=== PATIENT | female | born 1980 | race American Indian/Alaskan Native ===

== ENCOUNTER 2017-11-23 21:09 | Inpatient (IN) | payer MEDICAID ==
--- NOTE | 2017-11-23 23:24 | History and Physical Report ---
History of Present Illness Date of examination: 11/23/17 Date of admission: 11/23/17 21:09 Chief complaint: Induction of labor History of present illness: Pt is a 37yo BF EDC 12/05/17: EGA 38 3/7 weeks presents to L&D for induction of labor due to Chronic hypertension, polyhydramnios, morbid obesity and ventriculomegaly. She received care at [facility] since 9 weeks and co-managed by [facility]. records are available and GBS is Negative. Past History Past Medical History: hypertension Past Surgical History: no surgical history Social history: no significant social history, single - Obstetrical History Expected Date of Delivery: 12/05/17 Actual Gestation: 38 Week(s) 3 Day(s) Medications and Allergies Allergies Allergy/AdvReac Type Severity Reaction Status Date / Time No Known Allergies Allergy Unverified 11/23/17 23:25 Home Medications Medication Instructions Recorded Confirmed Last Taken Type Aspirin [Aspirin EC] 1 tab PO DAILY 11/23/17 11/23/17 11/23/17 17:00 History 1 TAB Colace CAP 1 tab PO ONCE 11/23/17 11/23/17 11/23/17 17:00 History 1 TABLET Ferrous Sulfate [Iron] 325 mg PO DAILY 11/23/17 11/23/17 11/23/17 17:00 History 1 TAB Labetalol [Normodyne] 200 mg PO BID 11/23/17 11/23/17 11/23/17 17:00 History 200 MG Loratadine 1 tab PO DAILY 11/23/17 11/23/17 11/23/17 17:00 History 1 TAB Pnv,Calcium 72/Iron/Folic Acid 1 tab PO ONCE 11/23/17 11/23/17 11/23/17 17:00 History [Preplus Ca-Fe 27 mg-FA 1 mg Tb] 1 TAB Ranitidine HCl 150 mg PO BID 11/23/17 11/23/17 11/23/17 17:00 History 1 Review of Systems All systems: negative - Vital Signs Vital signs: Vital Signs Pulse Pulse Ox 109 H 100 11/23/17 21:52 11/23/17 21:52 Temp Pulse Resp BP Pulse Ox 107 H 132/70 82 L 11/23/17 22:18 11/23/17 21:58 11/23/17 22:18 - Physical Exam Breasts: Positive: deferred Cardiovascular: Regular rate Lungs: Positive: Clear to auscultation Abdomen: Positive: normal appearance, soft Genitourinary (Female): Positive: normal external genitalia Uterus: Positive: enlarged Extremities: Positive: normal - Obstetrical FHR: category 1 Uterine Contraction Monitor Mode: External Cervical Dilatation: 1 Cervical Effacement Percentage: 50 station: -3 Uterine Contraction Pattern: Irregular Uterine Contraction Intensity: Mild Results Result Diagrams: 11/24/17 01:05 All other labs normal. Assessment and Plan - Patient Problems (1) 38 weeks gestation of Onset Date: 11/23/17 Current Visit: Yes Status: Acute Plan to address problem: A: IUP @ 38 3/7 weeks Chronic hypertension Polyhydramnios Morbid obesity P: Admit to L&D for cervidil/pitocin induction of labor Monitor BP's (2) Hypertension affecting in third trimester Onset Date: 11/23/17 Current Visit: Yes Status: Acute (3) Polyhydramnios affecting in third trimester Onset Date: 11/23/17 Current Visit: Yes Status: Acute (4) Morbid obesity with BMI of 50.0-59.9, adult Onset Date: 11/23/17 Current Visit: Yes Status: Chronic
[2017-11-23] MEDS ORDERED: ZOFRAN IV PRN (23:28)
[2017-11-23] MEDS ORDERED: NARCAN 0.4 MG/1 ML IV PRN (23:28)
[2017-11-23] MEDS ORDERED: XYLOCAINE 2% INFILTRATI ONE (23:28)
[2017-11-23] MEDS ORDERED: MINERAL OIL PO PRN (23:28)
[2017-11-23] MEDS ORDERED: BRETHINE SUB-Q PRN (23:28)
[2017-11-23] MEDS ORDERED: STADOL IV PRN (23:28)
[2017-11-23] MEDS ORDERED: BRETHINE IVP PRN (23:28)
[2017-11-23] MEDS ORDERED: ePHEDrine SULFATE IV PRN (23:28)
[2017-11-23] MEDS ORDERED: SUBLIMAZE IV PRN (23:28)
[2017-11-23] MEDS ORDERED: PITOCin/NS 30 UNIT/500ML 30 UNITS/500 ML BAG IV SCH (23:45)
[2017-11-23] MEDS ORDERED: PITOCin/NS 20 UNIT/1000ML DRIP 20 UNITS/1,000 ML BAG IV SCH (23:45)
[2017-11-24] MEDS ORDERED: CERVIDIL VG ONE (00:30)
[2017-11-24 01:34] LABS: Hematocrit 34.2 % (30.3-42.9); Hemoglobin 11.8 gm/dl (10.1-14.3); Mean Corpuscular HGB Conc 35 % (30-34); Mean Corpuscular Hemoglobin 31 pg (28-32); Mean Corpuscular Volume 89 fl (79-97); Platelet Count 229 K/mm3 (140-440); Red Blood Count 3.85 M/mm3 (3.65-5.03); Red Cell Distribution Width 13.4 % (13.2-15.2)
[2017-11-24] MEDS: LACTATED RINGERS 1,000 ML IV SCH ×3 (02:14→17:04)
[2017-11-24] MEDS: PITOCin/NS 30 UNIT/500ML 30 UNITS/500 ML BAG IV SCH ×6 (09:47→15:55)
--- NOTE | 2017-11-24 14:21 | Progress Note ---
Assessment and Plan - Patient Problems (1) 38 weeks gestation of Onset Date: 11/23/17 Current Visit: Yes Status: Acute Plan to address problem: A: IUP @ 38 4/7 weeks Chronic hypertension - currently controlled without Labetolol Polyhydramnios Morbid obesity P: Continue with pitocin induction of labor Monitor BP's (2) Hypertension affecting in third trimester Onset Date: 11/23/17 Current Visit: Yes Status: Acute (3) Polyhydramnios affecting in third trimester Onset Date: 11/23/17 Current Visit: Yes Status: Acute (4) Morbid obesity with BMI of 50.0-59.9, adult Onset Date: 11/23/17 Current Visit: Yes Status: Chronic Subjective - Subjective Date of service: 11/24/17 Principal diagnosis: IUP @ 38 4/7 weeks; CHTN; Polyhydramnios Interval history: Pt received cervidil last night, but it was removed due to a non-reassuring tracing which subsequently improved. She is currently on pitocin 14mu/min and adriane q 3-4 mins. Patient reports: movement normal, contractions, no new complaints, no loss of fluid, no vaginal bleeding Objective - Vital Signs Vital Signs: Vital Signs - 12hr 11/24/17 11/24/17 11/24/17 02:26 02:31 02:36 Temperature Pulse Rate 102 H 103 H 102 H Respiratory Rate Blood Pressure Blood Pressure [Left] O2 Sat by Pulse 98 98 98 Oximetry 11/24/17 11/24/17 11/24/17 02:41 02:42 02:46 Temperature Pulse Rate 100 H 100 H 101 H Respiratory Rate Blood Pressure 134/70 Blood Pressure [Left] O2 Sat by Pulse 97 99 Oximetry 11/24/17 11/24/17 11/24/17 02:51 02:56 03:01 Temperature Pulse Rate 118 H 103 H 105 H Respiratory Rate Blood Pressure Blood Pressure [Left] O2 Sat by Pulse 98 98 99 Oximetry 11/24/17 11/24/17 11/24/17 03:06 03:11 03:13 Temperature Pulse Rate 104 H 104 H 100 H Respiratory Rate Blood Pressure 126/63 Blood Pressure [Left] O2 Sat by Pulse 99 97 Oximetry 11/24/17 11/24/17 11/24/17 03:16 03:43 04:03 Temperature Pulse Rate 108 H 106 H 110 H Respiratory Rate Blood Pressure 117/62 Blood Pressure [Left] O2 Sat by Pulse 100 100 Oximetry 11/24/17 11/24/17 11/24/17 04:08 04:12 04:13 Temperature Pulse Rate 104 H 103 H 101 H Respiratory Rate Blood Pressure 123/72 Blood Pressure [Left] O2 Sat by Pulse 100 92 98 Oximetry 11/24/17 11/24/17 11/24/17 04:18 04:23 04:28 Temperature Pulse Rate 101 H 104 H 104 H Respiratory Rate Blood Pressure Blood Pressure [Left] O2 Sat by Pulse 99 99 98 Oximetry 11/24/17 11/24/17 11/24/17 04:33 04:38 04:42 Temperature Pulse Rate 111 H 103 H 100 H Respiratory Rate Blood Pressure 119/70 Blood Pressure [Left] O2 Sat by Pulse 98 99 93 Oximetry 11/24/17 11/24/17 11/24/17 04:43 04:48 04:53 Temperature Pulse Rate 100 H 103 H 98 H Respiratory Rate Blood Pressure Blood Pressure [Left] O2 Sat by Pulse 99 99 99 Oximetry 11/24/17 11/24/17 11/24/17 04:58 05:03 05:08 Temperature Pulse Rate 99 H 100 H 103 H Respiratory Rate Blood Pressure Blood Pressure [Left] O2 Sat by Pulse 98 99 98 Oximetry 11/24/17 11/24/17 11/24/17 05:13 05:18 05:23 Temperature Pulse Rate 104 H 101 H 98 H Respiratory Rate Blood Pressure 117/65 Blood Pressure [Left] O2 Sat by Pulse 99 99 98 Oximetry 11/24/17 11/24/17 11/24/17 05:28 05:32 05:33 Temperature 98.1 F Pulse Rate 105 H 96 H Respiratory 16 Rate Blood Pressure Blood Pressure [Left] O2 Sat by Pulse 100 99 Oximetry 11/24/17 11/24/17 11/24/17 05:39 05:42 05:44 Temperature Pulse Rate 97 H 97 H 93 H Respiratory Rate Blood Pressure 126/66 Blood Pressure [Left] O2 Sat by Pulse 100 100 Oximetry 11/24/17 11/24/17 11/24/17 05:49 05:54 05:59 Temperature Pulse Rate 91 H 92 H 90 Respiratory Rate Blood Pressure Blood Pressure [Left] O2 Sat by Pulse 100 100 100 Oximetry 05/05/0411/24/17 11/24/17 06:04 06:09 06:12 Temperature Pulse Rate 91 H 96 H 88 Respiratory Rate Blood Pressure 112/55 Blood Pressure [Left] O2 Sat by Pulse 100 100 Oximetry 11/24/17 11/24/17 11/24/17 06:14 06:19 09:48 Temperature 97.3 F L Pulse Rate 92 H 89 93 H Respiratory 18 Rate Blood Pressure Blood Pressure 126/70 [Left] O2 Sat by Pulse 100 100 99 Oximetry 11/24/17 11/24/17 09:52 09:54 Temperature Pulse Rate 93 H 96 H Respiratory Rate Blood Pressure 126/70 Blood Pressure [Left] O2 Sat by Pulse 99 Oximetry - Exam Lungs: Clear to auscultation Abdomen: Present: normal appearance Uterus: Present: normal FHR: auscultation normal, category 1 Uterine Contraction Monitor Mode: External Cervical Dilatation: 1 Cervical Effacement Percentage: 50 station: -3 Uterine Contraction Pattern: Regular Uterine Tone Measurement Phase: Contraction Uterine Contraction Intensity: Moderate - Labs Labs: Abnormal Labs 11/24/17 01:05 WBC 11.9 H MCHC 35 H Laboratory Results - last 24 hr 11/24/17 11/24/17 11/24/17 01:05 01:05 04:01 WBC 11.9 H RBC 3.85 Hgb 11.8 Hct 34.2 MCV 89 MCH 31 MCHC 35 H RDW 13.4 Plt Count 229 RPR Nonreactive Blood Type B POSITIVE Antibody Screen Negative
[2017-11-25] MEDS: LACTATED RINGERS 1,000 ML IV SCH (02:07)
--- NOTE | 2017-11-25 10:28 | Progress Note ---
Assessment and Plan - Patient Problems (1) 38 weeks gestation of Onset Date: 11/23/17 Current Visit: Yes Status: Acute Plan to address problem: A: IUP @ 38 5/7 weeks Chronic hypertension - currently controlled without Labetolol Polyhydramnios Morbid obesity Desires permanent sterilization P: Will proceed with a Primary C Section with Bilateral Tubal Ligation (2) Hypertension affecting in third trimester Onset Date: 11/23/17 Current Visit: Yes Status: Acute (3) Polyhydramnios affecting in third trimester Onset Date: 11/23/17 Current Visit: Yes Status: Acute (4) Morbid obesity with BMI of 50.0-59.9, adult Onset Date: 11/23/17 Current Visit: Yes Status: Chronic Subjective - Subjective Date of service: 11/25/17 Principal diagnosis: IUP @ 38 5/7 weeks; CHTN; Polyhydramnios Interval history: Pt received cervidil, but it was removed due to a non-reassuring tracing which subsequently improved. She is currently on pitocin 28mu/min and adriane q 3- 4 mins without any cervical change x 2 days. Discussed with pt and family members to proceed with a C Section with BTL. Patient reports: movement normal, contractions, no new complaints, no loss of fluid, no vaginal bleeding Objective - Vital Signs Vital Signs: Vital Signs - 12hr 11/24/17 11/24/17 11/24/17 22:31 22:36 22:41 Temperature Pulse Rate 89 92 H 84 Respiratory Rate Blood Pressure Blood Pressure [Left] O2 Sat by Pulse 98 98 96 Oximetry 11/24/17 11/24/17 11/24/17 22:42 22:43 23:30 Temperature 98.8 F Pulse Rate 97 H 90 Respiratory 20 Rate Blood Pressure 129/69 Blood Pressure [Left] O2 Sat by Pulse 94 Oximetry 11/24/17 11/25/17 11/25/17 23:55 00:02 00:31 Temperature Pulse Rate 85 97 H 100 H Respiratory Rate Blood Pressure 114/63 111/66 116/57 Blood Pressure [Left] O2 Sat by Pulse 100 Oximetry 11/25/17 11/25/17 11/25/17 00:55 01:55 02:56 Temperature Pulse Rate 92 H 91 H 83 Respiratory Rate Blood Pressure 108/66 109/67 121/71 Blood Pressure [Left] O2 Sat by Pulse Oximetry 11/25/17 11/25/17 11/25/17 03:28 03:46 03:51 Temperature Pulse Rate 96 H 91 H 90 Respiratory Rate Blood Pressure 128/76 Blood Pressure [Left] O2 Sat by Pulse 98 98 Oximetry 11/25/17 11/25/17 11/25/17 03:56 04:01 04:06 Temperature Pulse Rate 86 85 82 Respiratory Rate Blood Pressure 128/74 Blood Pressure [Left] O2 Sat by Pulse 99 99 99 Oximetry 11/25/17 11/25/17 11/25/17 04:11 04:16 06:56 Temperature Pulse Rate 83 85 90 Respiratory Rate Blood Pressure 119/68 Blood Pressure [Left] O2 Sat by Pulse 98 97 Oximetry 11/25/17 11/25/17 11/25/17 07:35 07:36 07:37 Temperature 98.6 F Pulse Rate 99 H 101 H 92 H Respiratory 17 Rate Blood Pressure 116/56 121/63 Blood Pressure 121/63 [Left] O2 Sat by Pulse 99 99 Oximetry 11/25/17 11/25/17 11/25/17 07:52 07:57 08:02 Temperature Pulse Rate 93 H 89 95 H Respiratory Rate Blood Pressure 131/73 Blood Pressure [Left] O2 Sat by Pulse 99 98 98 Oximetry 11/25/17 11/25/17 11/25/17 08:07 08:12 08:17 Temperature Pulse Rate 94 H 95 H 94 H Respiratory Rate Blood Pressure Blood Pressure [Left] O2 Sat by Pulse 98 99 100 Oximetry 11/25/17 11/25/17 11/25/17 08:22 08:27 08:32 Temperature Pulse Rate 95 H 102 H 98 H Respiratory Rate Blood Pressure Blood Pressure [Left] O2 Sat by Pulse 99 100 99 Oximetry 11/25/17 11/25/17 11/25/17 08:37 08:42 08:47 Temperature Pulse Rate 94 H 97 H 98 H Respiratory Rate Blood Pressure Blood Pressure [Left] O2 Sat by Pulse 99 99 100 Oximetry 11/25/17 11/25/17 11/25/17 08:52 09:27 09:32 Temperature Pulse Rate 112 H 99 H 93 H Respiratory Rate Blood Pressure Blood Pressure [Left] O2 Sat by Pulse 93 99 99 Oximetry 11/25/17 11/25/17 11/25/17 09:37 09:42 09:46 Temperature Pulse Rate 97 H 94 H 32 L Respiratory Rate Blood Pressure 141/72 Blood Pressure [Left] O2 Sat by Pulse 100 100 87 Oximetry 11/25/17 11/25/17 11/25/17 09:48 09:58 10:03 Temperature Pulse Rate 93 H 99 H Respiratory Rate Blood Pressure Blood Pressure 141/72 [Left] O2 Sat by Pulse 98 100 Oximetry 11/25/17 11/25/17 11/25/17 10:08 10:13 10:18 Temperature Pulse Rate 94 H 85 77 Respiratory Rate Blood Pressure Blood Pressure [Left] O2 Sat by Pulse 99 97 98 Oximetry 11/25/17 11/25/17 10:23 10:28 Temperature Pulse Rate 73 81 Respiratory Rate Blood Pressure Blood Pressure [Left] O2 Sat by Pulse 98 98 Oximetry - Exam Breasts: deferred Cardiovascular: Regular rate Lungs: Clear to auscultation Abdomen: Present: normal appearance Uterus: Present: normal FHR: category 1 Uterine Contraction Monitor Mode: External Cervical Dilatation: 1 Cervical Effacement Percentage: 50 station: -3 Uterine Contraction Pattern: Regular Uterine Tone Measurement Phase: Contraction Uterine Contraction Intensity: Strong/Firm - Labs Labs: Abnormal Labs 11/24/17 01:05 WBC 11.9 H MCHC 35 H Laboratory Results - last 24 hr 11/24/17 04:01 RPR Nonreactive
[2017-11-25] MEDS ORDERED: PEPCID IV ONE (14:34)
[2017-11-25] MEDS ORDERED: BICITRA PO ONE (14:34)
[2017-11-25] MEDS ORDERED: REGLAN IV ONE (14:34)
[2017-11-25] MEDS ORDERED: LACTATED RINGERS 1,000 ML IV SCH (15:00)
[2017-11-25] MEDS ORDERED: PITOCin/NS 20 UNIT/1000ML DRIP 20 UNITS/1,000 ML BAG IV SCH ×2 (15:00→19:00)
[2017-11-25] MEDS ORDERED: ANCEF/STERILE WATER 2 GM/20 ML 2 GM/20 ML SYRINGE IV NR (15:00)
[2017-11-25] MEDS ORDERED: SUBLIMAZE ONE (16:04)
[2017-11-25] MEDS ORDERED: XYLOCAINE MPF 2% ONE (16:17)
[2017-11-25] MEDS ORDERED: NEO SYNEPHRINE/NS Syringe(OR USE) IV ONE (16:33)
[2017-11-25] MEDS ORDERED: ZOFRAN ONE (16:33)
[2017-11-25] MEDS ORDERED: WATER FOR IRRIG STERILE IR ONE (16:50)
[2017-11-25] MEDS ORDERED: NACL 0.9% IR ONE (16:50)
[2017-11-25] MEDS ORDERED: NACL 0.9% 1000 ML 1,000 ML ONE (16:51)
[2017-11-25] MEDS ORDERED: NARCAN 0.4 MG/1 ML IV PRN (17:54)
[2017-11-25] MEDS ORDERED: TUCKS PAD TP PRN (17:54)
[2017-11-25] MEDS ORDERED: LANSINOH TP PRN (17:54)
[2017-11-25] MEDS ORDERED: SODIUM CHLORIDE FLUSH SYRINGE 10 ML IV SCH (18:00)
[2017-11-25] MEDS ORDERED: PHENERGAN PR PRN (18:10)
[2017-11-25] MEDS ORDERED: MILK OF MAGNESIA PO PRN (18:10)
[2017-11-25] MEDS ORDERED: TYLENOL PO PRN (18:10)
--- NOTE | 2017-11-25 18:22 | Operative Report ---
Operative Report Operative Report: Date of procedure: 11/25/2017 Pre-operative diagnosis: 1. Intrauterine at 36-5/7 weeks 2. Chronic hypertension 3. Polyhydramnios 4. Morbid obesity 5. Failed induction of labor 6. Desires permanent sterilization Post-operative diagnosis: Same Procedure name(s): 1. Primary low transverse section 2. Bilateral tubal ligation Surgeon: Jesús Cadet MD [place]: None Anesthesia: Spinal anesthesia by Dr. Renner EBL: 900 mls Findings: A 3524 g male infant Apgars 5 at 1 minute 7 and 5 minutes. Copious clear amniotic fluid. Normal uterus with small posterior fibroid. Normal tubes and ovaries bilaterally. Procedure: After the patient was prepped and draped in usual sterile fashion, and after satisfactory level of epidural anesthesia was obtained, the skin knife was used to make a transverse skin incision. The incision was excised down to layer of the fascia, which was nicked in the midline and extended laterally using the Bovie cautery. The rectus muscles were dissected off the rectus fascia both superiorly and inferiorly. The rectus bellies in the midline, and the peritoneum was entered under direct visualization. The peritoneal incision was extended superiorly and inferiorly. A bladder flap was created and the bladder blade was then placed. The uterus was scored in a curvilinear linear fashion, entered in the midline revealing clear amniotic fluid. The infant's head was delivered onto the surgical field, and the oropharynx and nasopharynx were bulb suctioned. The rest of the infant's body was delivered, cord was doubly clamped and cut and the infant was handed to the waiting respiratory team. Cord blood was then obtained. The placenta was manually removed from the uterus, and the uterus removed from its normal anatomical position. After gentle uterine lavage, the incision was inspected and found to be without extensions. It was then closed in 2 layers using 0 Vicryl suture in a running interlocking fashion, the second layer imbricating the first. Attention was then turned to the tubal ligation. First the right fallopian tube was grasped using [place], and the Filshie clip was applied to the proximal portion of the tube. Next the left fallopian tube was grasped using the [place], and the Filshie clip was applied to the proximal portion of the tube. After good hemostasis was achieved, copious amounts or irrigation was performed, and the gutters were suctioned free of blood and blood clots. Tisseel sealant was sprayed across the uterine incision. The uterus was then returned to its normal anatomical position, and after excellent hemostasis assured, the peritoneum was reapproximated using 3-0 Vicryl suture in a running interlocking fashion, and then the rectus muscles were re-approximated using 3-0 Vicryl suture in a figure -of-eight configuration. The fascia was then re-approximated using 0 Vicryl suture in running interlocking fashion. The subcutaneous layer was made hemostatic using Bovie cautery, the Tisseel sealant was sprayed across the fascial incision and the skin edges re-approximated using 4-0 Vicryl suture in a sub-cuticular fashion. Patient tolerated the procedure well was transported to recovery in stable condition.
[2017-11-25] MEDS ORDERED: DEMEROL IV PRN (18:44)
[2017-11-25] MEDS ORDERED: ANCEF/NS 1 GM/50 ML 1 GM/50 ML BAG IV SCH (19:00)
[2017-11-25] MEDS ORDERED: D5LR 1,000 ML IV SCH (19:00)
[2017-11-25] MEDS: TORADOL IV PRN (19:27)
[2017-11-25] MEDS: PITOCin/NS 30 UNIT/500ML 30 UNITS/500 ML BAG IV SCH (19:28)
[2017-11-25] MEDS: NORCO 5/325 PO PRN (22:25)
[2017-11-26] MEDS: ceFAZolin 1 GM in NACL 0.9% 20 ML IV SCH ×2 (02:30→10:16)
[2017-11-26] MEDS: TORADOL IV PRN (04:08)
[2017-11-26] MEDS ORDERED: BOOSTRIX IM ONE (06:00)
[2017-11-26 07:03] LABS: Hematocrit 35.7 % (30.3-42.9); Hemoglobin 11.6 gm/dl (10.1-14.3)
--- NOTE | 2017-11-26 09:38 | Progress Note ---
Assessment and Plan - Patient Problems (1) 38 weeks gestation of Onset Date: 11/23/17 Current Visit: Yes Status: Resolved (2) Hypertension affecting in third trimester Onset Date: 11/23/17 Current Visit: Yes Status: Chronic (3) Polyhydramnios affecting in third trimester Onset Date: 11/23/17 Current Visit: Yes Status: Resolved (4) Morbid obesity with BMI of 50.0-59.9, adult Onset Date: 11/23/17 Current Visit: Yes Status: Chronic (5) Status post section Onset Date: 11/26/17 Current Visit: Yes Status: Acute Plan to address problem: A: S/P C Section with BTL - POD #1 Doing well Chronic hypertension - stable P: Continue RPOC Advance diet as tolerated Anticipate discharge in 24-48hrs Subjective - Subjective Date of service: 11/26/17 Principal diagnosis: s/p Primary C Section with BTL - POD #1 Interval history: Pt is feeling well without complaints. Tolerating a liquid diet without nausea or vomiting. Patient reports: appetite normal, voiding normally, pain well controlled, flatus , ambulating normally, no dizzy ambulation, no nauseated : doing well, in NICU Objective - Vital Signs Latest vital signs: Vital Signs Temp Pulse Resp BP BP Pulse Ox 11/26/17 04:08 18 11/26/17 01:00 98.6 F 77 16 131/76 11/25/17 22:25 18 11/25/17 19:38 98.9 F 11/25/17 19:30 75 23 141/84 100 11/25/17 19:24 86 12 143/67 95 11/25/17 19:18 83 24 133/67 94 11/25/17 19:12 83 22 125/67 97 11/25/17 19:06 78 14 115/61 98 11/25/17 19:00 78 18 117/52 97 11/25/17 18:56 87 17 92/71 11/25/17 18:50 85 15 92/71 11/25/17 18:41 101 H 10 L 92/71 100 11/25/17 18:36 98 H 14 82/44 99 11/25/17 18:30 91 H 20 82/44 99 11/25/17 18:24 91 H 18 102/56 99 11/25/17 18:18 87 11 L 93/61 99 11/25/17 18:12 93 H 12 105/54 99 11/25/17 18:06 87 14 105/54 99 11/25/17 18:00 84 16 105/54 99 11/25/17 17:55 83 19 97/54 98 11/25/17 17:50 85 19 103/47 98 11/25/17 17:44 97.6 F 90 16 11/25/17 13:56 91 H 149/96 11/25/17 12:57 83 135/72 11/25/17 12:04 85 49 L 11/25/17 12:03 89 99 11/25/17 11:58 77 99 11/25/17 11:56 75 129/73 11/25/17 11:53 76 99 11/25/17 11:48 78 98 11/25/17 11:43 77 98 11/25/17 11:38 75 98 11/25/17 11:33 78 99 11/25/17 11:28 80 99 11/25/17 11:23 74 99 11/25/17 11:18 75 98 11/25/17 11:13 77 99 11/25/17 11:08 72 96 11/25/17 11:03 84 99 11/25/17 10:58 77 99 11/25/17 10:56 82 134/67 93 11/25/17 10:53 81 99 11/25/17 10:48 77 98 11/25/17 10:43 79 98 11/25/17 10:38 90 97 11/25/17 10:33 82 98 11/25/17 10:28 81 98 11/25/17 10:23 73 98 11/25/17 10:18 77 98 11/25/17 10:13 85 97 11/25/17 10:08 94 H 99 11/25/17 10:03 99 H 100 11/25/17 09:58 93 H 98 11/25/17 09:48 141/72 11/25/17 09:46 32 L 87 11/25/17 09:42 94 H 100 Intake and Output 11/25/17 11/26/17 11/26/17 22:59 06:59 14:59 Intake Total 1700 Output Total 350 800 Balance 1350 -800 Intake: IV 1700 Output: Urine 350 800 Uretheral (Krishnan) 200 800 Other: Estimated Blood Loss 900 - Exam Breasts: Present: deferred Cardiovascular: Present: Regular rate Lungs: Present: Clear to auscultation Abdomen: Present: normal appearance, soft Uterus: Present: normal, firm, fundal height below umbilicus Extremities: Present: normal Incision: Present: normal, dry, intact, dressed - Labs Labs: Laboratory Tests 11/24/17 11/24/17 11/24/17 01:05 01:05 04:01 WBC 11.9 H RBC 3.85 Hgb 11.8 Hct 34.2 MCV 89 MCH 31 MCHC 35 H RDW 13.4 Plt Count 229 RPR Nonreactive Blood Type B POSITIVE Antibody Screen Negative 11/26/17 06:03 WBC RBC Hgb 11.6 Hct 35.7 MCV MCH MCHC RDW Plt Count RPR Blood Type Antibody Screen
[2017-11-26] MEDS: PERCOCET 5/325 PO PRN ×2 (10:40→16:46)
[2017-11-26] MEDS: FEOSOL PO SCH (10:40)
[2017-11-26] MEDS: PRENATAL VITAMIN PO SCH (10:40)
[2017-11-26] MEDS: NORMODYNE PO SCH ×2 (16:02→22:11)
[2017-11-26] MEDS ORDERED: M-M-R II VACCINE SUB-Q ONE (18:14)
[2017-11-26] MEDS: MOTRIN PO PRN (22:11)
[2017-11-26] MEDS: NORCO 5/325 PO PRN (22:12)
[2017-11-27] MEDS: PERCOCET 5/325 PO PRN ×3 (00:32→21:59)
[2017-11-27] MEDS: MOTRIN PO PRN ×2 (05:48→21:59)
[2017-11-27] MEDS: NORCO 5/325 PO PRN (05:49)
[2017-11-27] MEDS: MYLICON PO PRN ×3 (08:51→21:58)
--- NOTE | 2017-11-27 10:05 | Progress Note ---
Assessment and Plan - Patient Problems (1) 38 weeks gestation of Onset Date: 11/23/17 Current Visit: Yes Status: Resolved (2) Hypertension affecting in third trimester Onset Date: 11/23/17 Current Visit: Yes Status: Chronic (3) Polyhydramnios affecting in third trimester Onset Date: 11/23/17 Current Visit: Yes Status: Resolved (4) Morbid obesity with BMI of 50.0-59.9, adult Onset Date: 11/23/17 Current Visit: Yes Status: Chronic (5) Status post section Onset Date: 11/26/17 Current Visit: Yes Status: Acute Plan to address problem: A: S/P C Section with BTL - POD #2 Doing well Chronic hypertension - stable P: May go home tomorrow. Subjective - Subjective Date of service: 11/27/17 Principal diagnosis: s/p Primary C Section with BTL - POD #2 Interval history: Pt is feeling well without complaints. Tolerating a reg diet without nausea or vomiting, ambulating and voiding without difficulty. Patient reports: appetite normal, voiding normally, pain well controlled, flatus , ambulating normally, no dizzy ambulation : doing well, in NICU Objective - Vital Signs Latest vital signs: Vital Signs Temp Pulse Resp BP BP 11/27/17 06:49 18 11/27/17 06:48 18 11/27/17 05:49 18 11/27/17 05:48 18 11/27/17 01:32 18 11/27/17 00:32 18 11/27/17 00:00 98.6 F 90 18 105/67 11/26/17 23:12 18 11/26/17 23:11 18 11/26/17 22:12 18 11/26/17 22:11 86 18 130/72 11/26/17 16:02 90 136/77 Intake and Output 11/26/17 11/27/17 11/27/17 22:59 06:59 14:59 Intake Total 360 240 Balance 360 240 Intake: Intake, Free Water 360 240 Other: # Voids Void 1 1 - Exam Breasts: Present: deferred Cardiovascular: Present: Regular rate Lungs: Present: Clear to auscultation Abdomen: Present: normal appearance, soft Uterus: Present: normal, firm, fundal height below umbilicus Extremities: Present: normal Incision: Present: normal, dry, intact, dressed
--- NOTE | 2017-11-27 10:27 | Discharge Summary ---
Providers - Providers Date of Admission: 11/23/17 21:09 Date of discharge: 11/28/17 Attending physician: CHIKA PEREZ Primary care physician: CHIKA PEREZ Hospitalization Reason for admission: induction of labor, IUP at term, other (Chronic hypertension; Polyhydramnios) Delivery: Procedure: section, bilateral tubal ligation, primary low transverse Episiotomy: none Laceration: none Incision: normal, dry, intact Other procedures: tubal ligation complications: none Discharge diagnosis: IUP at term delivered baby: male Hospital course: Pt is a 37yo BF EDC 12/05/17: EGA 38 3/7 weeks who presented to L&D for induction of labor due to Chronic hypertension, polyhydramnios, morbid obesity and ventriculomegaly. She received cervidil followed by Pitocin but without any cervical change x 2 days, so was delivered by a C Section with BTL. Post operative course was unremarkable, and by POD #2 she was tolerating a reg diet without nausea or vomiting, ambulating and voiding without difficulty. Her BP' s remained stable on Labetolol 200mg BID. She will therefore be discharged to home on POD #3 if she remains in stable condition. Condition at discharge: Good Disposition: DC-01 TO HOME OR SELFCARE - Discharge Diagnoses (1) 38 weeks gestation of Status: Resolved (2) Hypertension affecting in third trimester Status: Chronic (3) Polyhydramnios affecting in third trimester Status: Resolved (4) Morbid obesity with BMI of 50.0-59.9, adult Status: Chronic (5) Status post section Status: Resolved Plan - Discharge Medications Prescriptions: Ferrous Sulfate [Feosol 325 MG tab] 325 mg PO BID #60 tablet HYDROcodone/APAP 5-325 [[place] 5/325] 1 each PO Q6HR PRN #30 tablet PRN Reason: Pain Ibuprofen [Motrin] 800 mg PO Q8HR PRN #30 tablet PRN Reason: Moder Pain Unrelieved By [place] Vit Calc,Iron,Folic [ Vitamins] 1 each PO DAILY #30 tablet - Provider Discharge Summary Activity: routine, no sex for 6 weeks, no heavy lifting 4 weeks, no strenuous exercise Diet: routine Instructions: routine Additional instructions: [] Smoking cessation referral if applicable(refer to patient education folder for contact #) [] Refer to [facility] Booklet Call your doctor immediately for: * Fever > 100.5 * Heavy vaginal bleeding ( >1 pad per hour) * Severe persistent headache * Shortness of breath * Reddened, hot, painful area to leg or breast * Drainage or odor from incision. * Keep incision clean and dry at all times and follow doctor's instructions regarding bathing/showering Follow up in office in 1 week for BP check - Follow up plan Follow up: CHIKA PEREZ MD [Primary Care Provider] - 7 Days IAN YAN CNM [Advanced Practice Nurse] - 7 Days
[2017-11-27] MEDS: NORMODYNE PO SCH ×2 (12:20→21:58)
[2017-11-27] MEDS: PRENATAL VITAMIN PO SCH (12:25)
[2017-11-27] MEDS: FEOSOL PO SCH (12:25)
[2017-11-28] MEDS: FEOSOL PO SCH (10:08)
[2017-11-28] MEDS: PRENATAL VITAMIN PO SCH (10:08)
[2017-11-28 10:09] VITALS: BP 129/90
[2017-11-28] MEDS: NORMODYNE PO SCH (10:09)
== END 2017-11-28 10:53 | disposition home or self-care (01) | DRG 765 ==
LOC: LD 21:09 → OB 11-25 22:13
PROVIDERS: ADMIT Obstetrics & Gynecology; ATTEND Obstetrics & Gynecology
PROC: 10D00Z1 Extraction of Products of Conception, Low, Open Approach (ICD-10-PCS; principal; 2017-11-25)
PROC: 0UL70CZ Occlusion of Bilateral Fallopian Tubes with Extraluminal Device, Open Approach (ICD-10-PCS; 2017-11-25)
DX: O16.4 Unspecified maternal hypertension, complicating childbirth (principal); Z68.43 Body mass index [BMI] 50.0-59.9, adult; Z3A.38 38 weeks gestation of pregnancy; Z37.0 Single live birth; Z3A.37 37 weeks gestation of pregnancy; Z30.2 Encounter for sterilization; O40.3XX0 Polyhydramnios, third trimester, not applicable or unspecified; O99.214 Obesity complicating childbirth; E66.01 Morbid (severe) obesity due to excess calories; O61.9 Failed induction of labor, unspecified; O34.13 Maternal care for benign tumor of corpus uteri, third trimester; D25.9 Leiomyoma of uterus, unspecified
CPT/HCPCS: 36415; 85014; 85018; 85027; 86592; 86850; 86900; 86901; C9250; J0595; J0690; J1885; J2370; J2405; J2590; J2765; J3010; J7030; J7120